=== PATIENT | female | born 1975 | race Caucasian/White ===

== ENCOUNTER 2019-11-13 11:24 | Outpatient (CLI) | payer BC, SELFPAY | END 2019-11-13 11:25 | disposition home or self-care (01) | PROVIDERS: PCP Family Medicine; Visit Provider Obstetrics & Gynecology | DX: N85.2 Hypertrophy of uterus (principal) | CPT/HCPCS: 36415; 86850; 86900; 86901 ==

== ENCOUNTER 2019-11-21 02:03 | Day surgery (SDC) | payer BC, SELFPAY ==
[2019-11-07 15:12] VITALS: BMI 22.8
[2019-11-21] VITALS (11 sets, daily range): BP systolic 115–148; BP diastolic 65–86; PULSE 53–88; RESP 9–21; TEMP 36.7–37.6; O2SAT 94–100
--- NOTE | 2019-11-21 08:50 | PM.IMHP ---
H&P: HPI History of Present Illness Chief complaint: Enlarged Uterus/ Firboids/ Heavy Bleeding/ Anemia Narrative: 44 y/o with menses that occur monthly, but which are very heavy, lasting 5 days or so. She has spotting in the midcycle. She had a D&C, and has also had an endometrial ablation, but has not had significant improvement. She has a fibroid uterus. She also has anemia related to her chronic blood loss. Her has had a vasectomy. She is here for definitive management of her problem with hysterectomy. Review of Systems Review of Systems: All systems reviewed & are unremarkable except as noted in HPI and below [facility] Surgical History Surgical History H/O dilation and curettage H/O prior ablation treatment Family History Family History Mother Patient's mother is , Onset Age: 63 Family history of multiple sclerosis Family history of muscular dystrophy Family history of hearing loss Father Patient's father is in good health Grandparent Carcinoma of colon Family history of malignant neoplasm of breast in first degree relative Social History Social History Smoking status: Never smoker Alcohol intake: current Comments Past OB: x 1, a girl weighing 6#11oz. 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 No history of STI or of abnormal pap. Meds Home Medications and Allergies Home Medications Medication Instructions Recorded Confirmed Type ferrous gluconate 324 mg (38 mg 324 mg PO DAILY 10/25/19 11/07/19 History iron) tablet fluticasone 250 mcg-salmeterol 50 1 inhalation INHALATION BID each 10/29/19 11/07/19 Rx mcg/dose blistr powdr for inhalation fluticasone propionate 50 2 spray NASAL DAILY PRN 10/29/19 11/07/19 History mcg/actuation nasal spray,suspension guaifenesin 600 mg tablet, 600 mg PO BID PRN 10/29/19 11/07/19 History extended release 12 hr triamcinolone acetonide 0.1 % 1 applic TOPICAL BID PRN 10/29/19 11/07/19 History topical cream amitriptyline 25 mg tablet 25 mg PO HS #30 tablet 11/16/19 Rx albuterol sulfate 90 mcg/actuation 2 puff INHALATION Q4-6H PRN #8.5 gm 11/19/19 Rx aerosol inhaler Allergies Allergy/AdvReac Type Severity Reaction Status Date / Time No Known Allergies Allergy Verified 11/07/19 15:14 Exam Const: Orientation/consciousness: patient oriented x3 Other: Well-developed, well-nourished female in no acute distress. Neck: Thyroid: thyroid normal Lymphatic: no lymphadenopathy noted (in neck, axilla or inguinal nodes) Resp: Effort & Inspection: normal respiratory effort Auscultation: clear to auscultation bilaterally Cardio: Rate: regular rate Rhythm: regular rhythm Heart sounds: S1 normal heart sound present and S2 normal heart sound present GI: Other: ABD: Soft, nontender, nondistended. No guarding or rebound tenderness. No hepatosplenomegaly. : General: Yes no CVA tenderness Other: External genitalia: normal female hair distribution, without lesion. Urethral meatus: no lesion, non prolapsed. Bladder: no mass, nontender Vagina: well-estrogenized, without lesion or discharge. No cystocele or rectocele. Cervix: no lesion or discharge. Uterus: enlarged, retroverted, nontender. 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 Adnexa: no mass or tenderness. Anus/perineum: no lesions, nontender Back/Spine/Pelvis: Back: no CVA tenderness Skin: General skin exam: normal color and no rashes or lesions noted Neuro: General: patient oriented x3 Extrem: Other: Extremities: nontender with no edema Psych: Mental Status: mental status grossly normal Affect: normal affect Assessment and Plan Assessment and plan (1) Menometrorrhagia: Code(s): N92.1 - Excessive and frequent menstruation with irregular cycle Status: Acute Ass
[2019-11-21] MEDS: LACTATED RINGERS 1,000 ML 30 ML IV CONT ×2 (12:58→15:30)
--- NOTE | 2019-11-21 13:51 | WPDANESEPPF ---
Anes - Initial Pre Proc Eval Procedure: Operation Date: 11/21/19 14:00 Proposed Procedures p Total Vaginal Hysterectomy, Bilateral Salpingectomy - Scott Duckworth MD Date/Time: 11/21/19 13:51 Surgeon: Scott Duckworth MD Pre Op Diagnosis: Enlarged Uterus/ Firboids/ Heavy Bleeding/ Anemia Patient Data Age: 44 Gender: F Height: 5 ft 6 in Weight: 61.6 kg Last Vital Signs Temp 37.6 C H 11/21/19 12:08 Pulse 84 11/21/19 12:08 Resp 16 11/21/19 12:08 BP 148/86 H 11/21/19 12:08 Pulse Ox 100 11/21/19 12:08 Allergies Allergy/AdvReac Type Severity Reaction Status Date / Time No Known Allergies Allergy Verified 11/21/19 12:48 Home Medications Medication Instructions Recorded Confirmed Type ferrous gluconate 324 mg (38 mg 324 mg PO DAILY 10/25/19 11/21/19 History iron) tablet fluticasone 250 mcg-salmeterol 50 1 inhalation INHALATION BID each 10/29/19 11/21/19 Rx mcg/dose blistr powdr for inhalation fluticasone propionate 50 2 spray NASAL DAILY PRN 10/29/19 11/21/19 History mcg/actuation nasal spray,suspension guaifenesin 600 mg tablet, 600 mg PO BID PRN 10/29/19 11/21/19 History extended release 12 hr triamcinolone acetonide 0.1 % 1 applic TOPICAL BID PRN 10/29/19 11/21/19 History topical cream amitriptyline 25 mg tablet 25 mg PO HS #30 tablet 11/16/19 11/21/19 Rx albuterol sulfate 90 mcg/actuation 2 puff INHALATION Q4-6H PRN #8.5 gm 11/19/19 11/21/19 Rx aerosol inhaler phenyleph-min oil-petrolatum 1 applic RI QAM AND QHS PRN 11/21/19 11/21/19 History [Preparation H] Patient hx anesthesia problems: none Family hx anesthesia problems: none PMFSH Surgical History Surgical History H/O dilation and curettage H/O prior ablation treatment Family History Family History Mother Patient's mother is , Onset Age: 63 Family history of multiple sclerosis Family history of muscular dystrophy Family history of hearing loss Father Patient's father is in good health Grandparent Carcinoma of colon Family history of malignant neoplasm of breast in first degree relative Social History Social History Smoking status: Never smoker Alcohol intake: current Anes - Eval Final PreProcedure Day of Procedure 11/21/19 13:51 Patient weight: normal Heart: regular rate and rhythm Lungs: clear to auscultation Airway: Mallampati scale class II Neurological: alert and oriented Last oral intake: >/= 8 hours ASA classification: II Emergent: no Anesthetic plan: proceed Anesthesia type and monitoring: general ETT and standard monitoring Informed Consent: The patient's anesthetic plan and its attendant risks and benefits were discussed with the patient/family/POA. Questions were solicited and answers provided to the satisfaction of the patient/family/POA.
[2019-11-21] MEDS: ceFAZolin 2 GM/D5W 50 ML 2 GM/50 ML BAG IVPB (14:14)
--- NOTE | 2019-11-21 15:31 | PM.PROC ---
Procedure Note - Detailed Date of procedure: 11/21/19 Pre-op diagnosis: Enlarged Uterus/ Firboids/ Heavy Bleeding/ Anemia Symptomatic fibroid uterus Menometrorrhagia Anemia Post-op diagnosis: same Procedure performed: TVH bilateral salpingectomies Description of procedure: The patient was taken to the operating room where she was prepared and draped in the usual sterile fashion in the dorsal lithotomy position. The bladder was drained with red rubber catheter. A weighted speculum was placed posteriorly. A Mindy retractor was used anteriorly. The cervix was grasped with a single-toothed tenaculum. Ten mL of sterile saline was infiltrated circumferentially around the cervix to aid in tissue plane dissection. The cervix was circumscribed using electrocautery. The bladder was reflected off the cervix and lower uterine segment. The peritoneal cavity was entered sharply posteriorly and a long weighted speculum was placed. The uterosacral and cardinal ligaments on both sides were then clamped, transected and suture ligated using 0 Vicryl. These were tagged for later identification. The LigaSure device was then used to clamp, ligate and transect the broad ligaments bilaterally. The uterus was cored in order to effect delivery to the perineum. The tubes were visualized and were able to be dissected free. Finally, the utero-ovarian ligament / round ligament complexes on both sides were able to be clamped, transected and suture ligated using 0 Vicryl. The specimen was passed off to be sent to pathology. The pedicles were inspected and found to be hemostatic. The vaginal cuff angles were then transfixed to the ipsilateral cardinal uterosacral ligaments for support. The vaginal cuff was reapproximated using 0 Vicryl in a running, locked fashion. Hemostasis was excellent. A Weller catheter was placed. Vaginal packing soaked in Premarin cream was placed. Sponge, lap, needle and instrument counts were correct. The patient was awakened and taken to the recovery room in stable condition. I was present and scrubbed for the entire procedure. Implants: None Anesthesia: GETA Surgeon: Scott Duckworth MD Estimated blood loss (mL): 100 Drains: Yes (weller) Packing: Yes (vaginal) Pathology: yes (Uterus, cervix, bilateral tubes) Complications: None Condition: stable Disposition: PACU Findings: Uterus is enlarged and fibroid. Normal-appearing cervix, bilateral ovaries and tubes.
[2019-11-21] MEDS: KETOROLAC 30 MG/ML VIAL (*BKC) IV PUSH ×2 (17:03→23:17)
[2019-11-21] MEDS: ENOXAPARIN 40 MG/0.4 ML SYRINGE SUB-Q (21:33)
[2019-11-21] MEDS: AMITRIPTYLINE HCL 25 MG TABLET PO (21:34)
--- NOTE | 2019-11-22 00:11 | PCRCNOTE ---
Patient refused to take the Advair 115 that was ordered for her (1999 treatment). She would only take her personal Advair 250, which is a DPI. She used it, then rinsed her mouth.
[2019-11-22 04:30] VITALS: BP 127/78; PULSE 83; PULSE 97; RESP 16; TEMP 37; O2SAT 98; O2SAT 99
[2019-11-22] MEDS: IBUPROFEN 600 MG TABLET PO ×2 (05:06→10:37)
[2019-11-22 05:37] LABS: Basophils Percent Auto 0.2 % (0.2-1.2); Hematocrit 33.4 % (37.0-47.0); Hemoglobin 11.1 g/dL (12.0-15.0); Immature Granulocyte Absolute 0.05 K/mm3 (0.00-0.031); Immature Granulocyte Percent A 0.5 % (0-0.5); Lymphocytes Absolute Auto 0.88 K/mm3 (0.9-3.2); Lymphocytes Percent Auto 8.1 % (18.3-44.2); Mean Corpuscular HGB Conc 33.2 g/dl (32-36); Mean Corpuscular Hemoglobin 30.1 pg (26-34); Mean Corpuscular Volume 90.5 fl (80-100); Mean Platelet Volume 11.7 fl (7.4-10.4); Monocytes Absolute Auto 0.9 K/mm3 (0.1-0.6); Monocytes Percent Auto 7.8 % (2.6-8.5); Neutrophils Absolute Auto 9.1 K/mm3 (1.3-6.7); Neutrophils Percent Auto 83.4 % (45.5-73.1); Platelet Count Result 188 k/mm3 (150-375); Red Blood Count 3.69 M/mm3 (4.2-5.4); Red Cell Distribution Width 12.3 % (11.5-14.5); White Blood Count 10.9 K/mm3 (4.5-10.0)
[2019-11-22 07:15] VITALS: BP 139/72; PULSE 79; RESP 18; TEMP 36.9; O2SAT 100
--- NOTE | 2019-11-22 08:39 | PM.GYNPNOP ---
HOME CONNECT LPN - A/P Assessment and plan (1) Fibroid uterus: Code(s): D25.9 - Leiomyoma of uterus, unspecified Status: Acute Assessment and Plan: A: S/p TVH with bilateral salpingectomies. Doing well. P: Home to f/u 4 weeks. (2) Menometrorrhagia: Code(s): N92.1 - Excessive and frequent menstruation with irregular cycle Status: Acute Postoperative Procedures: Procedures Operation Date: 11/21/19 14:00 Actual Procedures Side Surgeon p Total Vaginal Hysterectomy, Bilateral Salpingectomy Bilateral Scott Duckworth MD Time Spent With Patient Time with patient: less than 15 minutes HOME CONNE[facility] LPN- PN:Subj Post-Op Subjective Date/time seen: 11/22/19 08:39 Interval history: Pain OK. Nausea improved. Packing and weller out, has voided. Tolerating diet. Would love to go home. Exam Narrative: Exam Narrative: AVSS I/O OK ABD soft, nontender EXT nontender [facility] LPN - PN: Obj Data Vital Signs Vital Signs: Vital Signs - 24 hr 11/21/19 12:08 11/21/19 15:30 11/21/19 15:45 Temperature 37.6 C H 36.7 C Pulse Rate 84 88 64 Respiratory Rate 16 21 H 10 L Blood Pressure 148/86 H 119/70 123/69 Pulse Oximetry 100 100 100 11/21/19 16:00 11/21/19 16:15 11/21/19 16:30 Temperature Pulse Rate 53 L 80 73 Respiratory Rate 10 L 9 L 10 L Blood Pressure 126/65 124/73 125/70 Pulse Oximetry 100 100 99 11/21/19 17:00 11/21/19 17:15 11/21/19 17:30 Temperature 36.7 C Pulse Rate 73 84 74 Respiratory Rate 14 14 14 Blood Pressure 115/69 116/66 132/74 Pulse Oximetry 97 98 94 11/21/19 18:00 11/21/19 20:15 11/22/19 04:30 Temperature 36.8 C 37.0 C 37.0 C Pulse Rate 86 83 97 Respiratory Rate 14 16 16 Blood Pressure 136/78 126/67 127/78 Pulse Oximetry 94 98 99 Intake/Output Intake/Output: Intake & Output 11/19/19 11/20/19 11/21/19 11/22/19 23:59 23:59 23:59 23:59 Intake Total 750 2160 Output Total 390 1550 Balance 360 610 Meds/Results Medications: Active Medications Generic Name Dose Route Start Last Admin Trade Name Freq PRN Reason Stop Dose Admin Hydrocodone Bitart/Acetaminophen 1 tab 11/21/19 16:36 [place] 5-325 Mg PO Q3H PRN Pain Rated 5 or Less Hydrocodone Bitart/Acetaminophen 1 tab 11/21/19 16:36 [place] 10-325 Mg PO Q3H PRN Pain Rated 6 or Greater Albuterol 2 puff 11/21/19 16:36 Proventil Hfa INHALATION Q4-6H PRN Shortness Of Breath Or Wheezing Amitriptyline HCl 25 mg 11/21/19 21:00 11/21/19 21:34 Elavil PO 25 mg HS MARIA A Administration Fluticasone Propionate 2 spray 11/21/19 16:36 Flonase 0.05% Nasal [place] NASAL DAILY PRN Congestion Dextrose/Sodium Chloride 1,000 mls @ 125 mls/hr 11/21/19 16:36 Dextrose 5% Sodium Chloride 0.45% IV CONT .Q8H MARIA A Ibuprofen 600 mg 11/21/19 16:36 11/22/19 05:06 Motrin PO 600 mg Q6H PRN Administration Cramping Ketorolac Tromethamine 30 mg 11/21/19 16:36 11/21/19 23:17 Toradol Inj IV PUSH 11/26/19 16:37 30 mg Q6H PRN Administration Pain Rated 4-6 Morphine Sulfate 4 mg 11/21/19 16:36 Morphine Sulfate Inj IV PUSH Q4H PRN Severe breakthrough pain Naloxone HCl 0.1 mg 11/21/19 16:36 Narcan IV PUSH Q2M PRN Respiratory rate less than 10 Ondansetron HCl 4 mg 11/21/19 16:36 Zofran Inj IV PUSH Q6H PRN Nausea And Vomiting Phenyleph/Shark Oil/Min Oil/Petrol 1 applic 11/21/19 16:36 Preparation H Cream RECTAL BID PRN Hemorrhoids Fluticasone/Salmeterol 2 puff 11/21/19 20:00 11/21/19 21:45 Advair Hfa 115-21 Mcg Inhaler (*Sp) INHALATION Not Given Q12HRT MARIA A Simethicone 80 mg 11/21/19 16:36 Mylicon PO Q2H PRN Gas Triamcinolone Acetonide 1 applic 11/21/19 16:36 Kenalog 0.1% Cream TOPICAL BID PRN Itching Labs CBC & Chem 7: 11/22/19 04:32 Labs: Laboratory Results - last 24 hr 11/22/19 04:32 WBC 10.9 H
--- NOTE | 2019-11-22 08:41 | PM.DS ---
DS: Diagnosis Admitting Diagnosis Admitting Diagnosis: Symptomatic fibroid uterus Menometrorrhagia Anemia DS: Data Data Completed and Pending Pending studies at discharge: Pending at discharge 11/21/19 15:06 Surgical [PTH] Routine Labs on day of discharge: Labs from last 24 hours 11/22/19 04:32 WBC 10.9 H RBC 3.69 L Hgb 11.1 L Hct 33.4 L MCV 90.5 MCH 30.1 MCHC 33.2 RDW 12.3 Plt Count 188 MPV 11.7 H Immature Gran % (Auto) 0.5 Neut % (Auto) 83.4 H Lymph % (Auto) 8.1 L [place] % (Auto) 7.8 Eos % (Auto) 0.0 Baso % (Auto) 0.2 Lymph # (Auto) 0.88 L [place] # (Auto) 0.9 H Eos # (Auto) 0.0 Baso # (Auto) 0.0 Abs Immat Gran (auto) 0.05 H Absolute Neuts (auto) 9.1 H Absolute Nucleated RBC 0.0 Nucleated RBC % 0.0 Discharge Plan Discharge Patient Disposition: Home, Self-Care Discharge Instructions: Call or return if temperature above 100.4? F, increased abdominal pain, increased vaginal bleeding or any new problems. Stand Alone Forms: General Discharge Instructions Follow-up/Referrals: Scott Duckworth MD [Physician] - (4 weeks) Discharge Medications: New hydrocodone-acetaminophen [[place]] 5-325 mg tablet 1 - 2 tablet PO Q6H PRN (Reason: pain) Qty: 30 RF: 0 No Action ferrous gluconate 324 mg (38 mg iron) tablet 324 mg PO DAILY RF: 0 fluticasone propionate 50 mcg/actuation spray,suspension 2 spray NASAL DAILY PRN (Reason: Congestion) RF: 0 guaifenesin [Mucinex] 600 mg tablet extended release 12hr 600 mg PO BID PRN (Reason: Congestion) RF: 0 triamcinolone acetonide 0.1 % cream 1 applic TOPICAL BID PRN (Reason: Itching) RF: 0 fluticasone propion-salmeterol [Advair Diskus] 250-50 mcg/dose blister with device 1 inhalation INHALATION BID RF: 0 Preparation H 0.25-14-74.9 % Ointment 1 applic LA QAM AND QHS PRN (Reason: Hemorrhoids) RF: 0 amitriptyline 25 mg tablet 25 mg PO HS Qty: 30 RF: 5 albuterol sulfate [Ventolin HFA] 90 mcg/actuation HFA aerosol inhaler 2 puff INHALATION Q4-6H PRN (Reason: Shortness Of Breath Or Wheezing) Qty: 8.5 RF: 0 Primary Care Provider: Keke Faith Attending physician on admission: Scott Duckworth
--- NOTE | 2019-11-22 10:45 | PC.NURSE ---
1020 All discharge instructions reviewed with pt and her . Pt voiced understanding.
== END 2019-11-22 10:40 | disposition home or self-care (01) ==
LOC: ANHSURGERY 12:42 → ANHOB2 16:44
PROVIDERS: PCP Family Medicine; Visit Provider Obstetrics & Gynecology
PROC: (CPT 58260; principal; 2019-11-21 14:00)
DX: D25.1 Intramural leiomyoma of uterus (principal); D25.2 Subserosal leiomyoma of uterus; N73.6 Female pelvic peritoneal adhesions (postinfective); N92.1 Excessive and frequent menstruation with irregular cycle; D64.9 Anemia, unspecified
CPT/HCPCS: 58262; 36415; 85025; 88307; 99199; A9270; J0131; J0690; J1100; J1170; J1650; J1885; J2250; J2405; J2704; J2710; J3010; J7030; J7120

== ENCOUNTER → 2022-08-23 16:04 | Outpatient (CLI) | payer BC, SELFPAY ==
--- NOTE | ~2022-08-23 | XR_ITS ---
XR foot RT min 3V DATE: 08/23/2022 16:24 INDICATION: Right foot pain TECHNIQUE: 4 views COMPARISON: None No other fracture or dislocation, periosteal reaction or bone destruction. FINDINGS: There is a recent nondisplaced transverse intra-articular fracture of the base of the fifth metatarsal bone. IMPRESSION: Transverse nondisplaced intra-articular fracture of base of fifth metatarsal bone Reviewed, dictated and finalized at location [facility]. [facility]PER[facility] IMPRESSION: Transverse nondisplaced intra-articular fracture of base of fifth m etatarsal bone
== END ==
PROVIDERS: PCP Physician Assistant; Visit Provider Physician Assistant
DX: S92.354A Nondisplaced fracture of fifth metatarsal bone, right foot, initial encounter for closed fracture (principal); X58.XXXA Exposure to other specified factors, initial encounter
CPT/HCPCS: 73630

== ENCOUNTER 2023-06-07 01:41 | Day surgery (SDC) | payer BC, SELFPAY ==
[2023-05-26 11:16] VITALS: BMI 22.4
--- NOTE | 2023-06-06 10:06 | WPDANESEPPF ---
Anes - Initial Pre Proc Eval Procedure: Operation Date: 06/07/23 11:30 Proposed Procedures p Screening Colonoscopy - Fredy Medina MD Date/Time: 06/06/23 10:06 Surgeon: Fredy Medina MD Pre Op Diagnosis: neoplasm screening Patient Data Age: 48 Gender: F Height: 1.7 m Weight: 65 kg Allergies Allergy/AdvReac Type Severity Reaction Status Date / Time No Known Allergies Allergy Verified 06/07/23 10:30 Home Medications Medication Instructions Recorded Confirmed Type triamcinolone acetonide 0.1 % 1 applic topical BID PRN Itching 10/29/19 05/26/23 History topical cream albuterol sulfate 90 mcg/actuation 2 puff inhalation Q4-6H PRN 04/04/23 05/26/23 Rx aerosol inhaler (Ventolin HFA) Shortness Of Breath Or Wheezing #8.5 grams guaifenesin 600 mg tablet, 600 mg PO Q12H PRN ASTHMA 05/26/23 05/26/23 History extended release 12 hr (Mucinex) loratadine 10 mg tablet (Claritin) 10 mg PO DAILY PRN ASTHMA 05/26/23 05/26/23 History amitriptyline 25 mg tablet 25 mg PO QHS #90 tabs 06/01/23 Rx fluticasone 250 mcg-salmeterol 50 1 inh inhalation BID #60 ea 06/01/23 Rx mcg/dose blistr powdr for inhalation (Advair Diskus) Patient hx anesthesia problems: none Family hx anesthesia problems: none Results Review: All pre-operative results and documents have been reviewed as part of the pre-operative evaluation. [facility] Past Medical History Medical History (Updated 06/06/23 @ 10:06 by Jovon Carpenter DO) Asthma Fibroid uterus Fracture of fifth metatarsal bone of right foot Surgical History Surgical History H/O dilation and curettage [address] Scott Duckworth H/O prior ablation treatment [address] Scott Duckworth H/O: hysterectomy [address] Scott Duckworth [place] teeth removed [address] Casie Simental Family History Family History Mother Patient's mother is , Onset Age: 63 Family history of multiple sclerosis Family history of muscular dystrophy Family history of hearing loss Father Patient's father is in good health Grandparent Carcinoma of colon Family history of malignant neoplasm of breast in first degree relative Other Kidney disorder Other Asthma Social History Social History Smoking status: Never smoker Alcohol intake: current Alcohol use details: 1-2 drinks at most per month Substance use: never Substance use type: does not use Lack of Transportation: No Lack of Food: Never True Current Housing: I Have Housing Concerned About Future Housing: No Difficulty Paying Gas/Electric Bills: No Difficulty Paying for Meds: No Currently Unemployed: No Education: Bachelor's Degree Difficulty w/ Childcare or Family Care: No Living arrangements: with family Gender identity (if verbalized by the patient): Female Spiritual care concerns: No Anes - Eval Final PreProcedure Day of Procedure 06/06/23 10:06 Patient weight: normal Heart: regular rate and rhythm Lungs: clear to auscultation and normal air movement Airway: Mallampati scale class II Neurological: alert and oriented Last oral intake: >/= 8 hours ASA classification: II Emergent: no Anesthetic plan: proceed Anesthesia type and monitoring: general GIVS and standard monitoring Results Review: All pre-operative results and documents have been reviewed as part of the pre-operative evaluation. Informed Consent: The patient's anesthetic plan and its attendant risks and benefits were discussed with the patient/family/POA. Questions were solicited and answers provided to the satisfaction of the patient/family/POA.
[2023-06-07 10:32] VITALS: BP 116/80; PULSE 66; RESP 18; TEMP 36.4; O2SAT 100
[2023-06-07] MEDS: LACTATED RINGERS 1,000 ML 150 ML IV CONT (10:39)
--- NOTE | 2023-06-07 11:50 | PM.HPGS ---
History of Present Illness History of Present Illness Consent: Risks, benefits, and alternatives have been discussed and questions answered. Patient agrees to proceed with procedure. Chief complaint: neoplasm screening Narrative: Shu Kline is a 48 year old female here for first screening colonoscopy Review of Systems Constitutional: Constitutional: Denies headache(s) and Denies weakness Eyes: Eyes: Denies blurry vision ENT: Reports Normal hearing present, Denies headache(s) and Denies neck pain Cardiovascular: Cardiovascular: Denies chest pain and Denies dyspnea Respiratory: Respiratory: Denies dyspnea Gastrointestinal: Gastrointestinal: Reports no additional gastrointestinal complaints Genitourinary: Genitourinary: Denies dysuria Musculoskeletal: Musculoskeletal: Denies neck pain Integumentary/Breasts: Skin/Breast: Denies dry skin Neurologic: Reports Normal hearing present, Denies headache(s) and Denies weakness Psychiatric: Psychiatric: Denies anxiety Endocrine: Endocrine: Denies change in body appearance Hematologic/Lymphatic: Hematologic/Lymphatic: Denies easy bleeding Allergic/Immunologic: Allergic/Immunologic: Denies urticaria [facility] Past Medical History Medical History (Updated 06/06/23 @ 10:06 by Jovon Carpenter DO) Asthma Fibroid uterus Fracture of fifth metatarsal bone of right foot Surgical History Surgical History H/O dilation and curettage [address] Scott Duckworth H/O prior ablation treatment [address] Scott Duckworth H/O: hysterectomy [address] Scott Duckworth [place] teeth removed [address] Jason Loveless Family History Family History Mother Patient's mother is , Onset Age: 63 Family history of multiple sclerosis Family history of muscular dystrophy Family history of hearing loss Father Patient's father is in good health Grandparent Carcinoma of colon Family history of malignant neoplasm of breast in first degree relative Other Kidney disorder Other Asthma Social History Social History Smoking status: Never smoker Alcohol intake: current Alcohol use details: 1-2 drinks at most per month Substance use: never Substance use type: does not use Lack of Transportation: No Lack of Food: Never True Current Housing: I Have Housing Concerned About Future Housing: No Difficulty Paying Gas/Electric Bills: No Difficulty Paying for Meds: No Currently Unemployed: No Education: Bachelor's Degree Difficulty w/ Childcare or Family Care: No Living arrangements: with family Gender identity (if verbalized by the patient): Female Spiritual care concerns: No Meds Home Medications and Allergies Home Medications Medication Instructions Recorded Confirmed Type triamcinolone acetonide 0.1 % 1 applic topical BID PRN Itching 10/29/19 05/26/23 History topical cream albuterol sulfate 90 mcg/actuation 2 puff inhalation Q4-6H PRN 04/04/23 05/26/23 Rx aerosol inhaler (Ventolin HFA) Shortness Of Breath Or Wheezing #8.5 grams guaifenesin 600 mg tablet, 600 mg PO Q12H PRN ASTHMA 05/26/23 05/26/23 History extended release 12 hr (Mucinex) loratadine 10 mg tablet (Claritin) 10 mg PO DAILY PRN ASTHMA 05/26/23 05/26/23 History amitriptyline 25 mg tablet 25 mg PO QHS #90 tabs 06/01/23 Rx fluticasone 250 mcg-salmeterol 50 1 inh inhalation BID #60 ea 06/01/23 Rx mcg/dose blistr powdr for inhalation (Advair Diskus) Allergies Allergy/AdvReac Type Severity Reaction Status Date / Time No Known Allergies Allergy Verified 06/07/23 10:30 Vital Signs Vital Signs - 24 hr 06/07/23 10:32 Temperature 97.5 F L Pulse Rate 66 Respiratory Rate 18 Blood Pressure 116/80 Pulse Oximetry 100 Oxygen Delivery Room Air Exam Const: General: c
[2023-06-07 12:09] VITALS: BP 116/70; PULSE 83; RESP 16; O2SAT 100
[2023-06-07 12:19] VITALS: BP 127/75; PULSE 73; RESP 15; O2SAT 97
[2023-06-07 12:29] VITALS: BP 144/87; PULSE 64; RESP 18; O2SAT 98
== END 2023-06-07 12:34 | disposition home or self-care (01) ==
PROVIDERS: PCP Family Medicine; Visit Provider Internal Medicine Gastroenterology
PROC: 0DJD8ZZ Inspection of Lower Intestinal Tract, Via Natural or Artificial Opening Endoscopic (ICD-10-PCS; CPT 45378; principal; 2023-06-07 11:45)
DX: Z12.11 Encounter for screening for malignant neoplasm of colon (principal); D12.4 Benign neoplasm of descending colon; J45.909 Unspecified asthma, uncomplicated; Z79.51 Long term (current) use of inhaled steroids
CPT/HCPCS: 45385; 88305; J2704; J7120

== ENCOUNTER 2024-10-25 09:55 | Emergency (ER) | payer BC, SELFPAY ==
--- NOTE | ~2024-10-25 | XR_ITS ---
EXAMINATION: XR chest 2V DATE: 10/25/2024 11:34 INDICATION: Shortness of breath. Cough. TECHNIQUE: Frontal and lateral views of the chest were obtained. COMPARISON: None. FINDINGS: There are airspace opacities in left mid and lower lung zones. No pleural effusion or pneum othorax. The heart size is normal. IMPRESSION: 1. Airspace opacities in left mid and lower lung zones, consistent with pneumonia. Reviewed, dictated and finalized at location A. AL CONSUMER SECTOR VICE PRESIDENT IMPRESSION: 1. Airspace opacities in left mid and lower lung zones, consistent with pneumon ia.
[2024-10-25 10:50] VITALS: BP 102/66; PULSE 107; RESP 16; TEMP 37; O2SAT 98
--- NOTE | 2024-10-25 11:09 | ED_ITS ---
HPI - URI/Sore Throat General Chief Complaint: Upper Respiratory Infection Stated Complaint: SOB/COUGH/CONGESTION/ASTHMA Time Seen by Provider: 10/25/24 11:09 Source: patient, RN notes reviewed and old records reviewed Mode of arrival: ambulatory Limitations: no limitations History of Present Illness HPI Narrative: 49-year-old female presents to the [facility] with 1 day history of cough, shortness of breath and fever as high as 101. Patient reports a history of asthma. Has been using her inhaler. Onset (ago): day(s) (1) Treatments prior to arrival: other (Inhaler) Related Data Home Medications ?Medication ?Instructions ?Recorded ?Confirmed ?Last Taken ?Type triamcinolone acetonide 0.1 % 1 applic topical BID PRN Itching 10/29/19 09/18/24 11/20/19 History topical cream guaifenesin 600 mg tablet, 600 mg PO Q12H PRN ASTHMA 05/26/23 09/18/24 Unknown History extended release 12 hr (Mucinex) loratadine 10 mg tablet (Claritin) 10 mg PO DAILY PRN ASTHMA 05/26/23 09/18/24 Unknown History azelastine 205.5 mcg (0.15 %) 1 spray intranasal QHS 12/21/23 09/18/24 Unknown History nasal spray (Astepro Allergy) Allergies Allergy/AdvReac Type Severity Reaction Status Date / Time No Known Allergies Allergy Verified 10/25/24 10:47 Review of Systems Review of Systems: All systems reviewed & are unremarkable except as noted in HPI and below Constitutional: Constitutional: Reports as per HPI, Reports body ache(s), Reports fatigue and Reports fever(s) ENT: Reports system reviewed and no additional complaints, except as documented Cardiovascular: Cardiovascular: Reports no additional cardiovascular complaints, Denies chest pain and Denies dyspnea Respiratory: Respiratory: Reports as per HPI, Denies chest congestion, Reports cough and Reports dyspnea Musculoskeletal: Musculoskeletal: Reports no additional musculoskeletal complaints Integumentary/Breasts: Skin/Breast: Reports system reviewed and no additional complaints, except as docu PMFSH Past Medical History Medical History Menorrhagia with regular cycle Iron deficiency anemia due to chronic blood loss Allergic rhinitis, cause unspecified Fracture of fifth metatarsal bone of right foot Fibroid uterus Asthma Surgical History Surgical History [place] teeth removed [address] Casie Simental H/O: hysterectomy [address] Scott Duckworth H/O dilation and curettage [address] Scott Duckworth H/O prior ablation treatment [address] Scott Duckworth Family History Family History Mother Patient's mother is , Onset Age: 63 Family history of multiple sclerosis Family history of muscular dystrophy Family history of hearing loss Father Patient's father is in good health Grandparent Carcinoma of colon Family history of malignant neoplasm of breast in first degree relative Other Kidney disorder Other Asthma Social History Social History Smoking status: Never smoker Alcohol intake: current Alcohol use details: 1-2 drinks at most per month Substance use: never Substance use type: does not use Lack of Transportation: No Lack of Food: Never True Current Housing: I Have Housing Concerned About Future Housing: No Difficulty Paying Gas/Electric Bills: No Difficulty Paying for Meds: No Currently Unemployed: No Education: Bachelor's Degree Difficulty w/ Childcare or Family Care: No Living arrangements: with family Gender identity (if verbalized by the patient): Female Spiritual care concerns: No Comments At the time of my signature, I reviewed and agree with the nursing past medical, surgical, social, and family history. There is no relevant family history pertinent to the patient complaint. Exam Const: General: cooperative, healthy appearing, no acute distress, well developed, alert, uncomfortable and well nourished Nutritional Appearance: well nourished Orientation/consciousness: patient oriented x3 Limitations: no limitations HENMT: Head: normal to inspection Ears: hearing grossly normal bilaterally, external ears normal, TM's normal bilaterally, EAC's normal, mastoids normal and no periauricular adenopathy Mouth: Yes Normal oral and palatal mucosa present, Yes lip normal, Yes tongue normal and Yes moist mucous membranes Throat: posterior oropharynx normal, uvula midline and no uvular edema Eyes: General: appearance normal, both eyes and all related structures Alignment and Position: alignment normal Neck: Neck: normal visual inspection, full ROM, no lymphadenopathy and no meningeal signs Chest: Chest palpation & inspection: normal inspection of the chest Resp: Effort & Inspection: normal respiratory effort and able to speak in complete sentences Auscultation: no crackles, no rales, no rhonchi and wheezes expiratory wheezes and left upper Cardio: Rate: regular rate Skin: General skin exam: normal color and no rashes or lesions noted Neuro: General: patient oriented x3, gait normal, moves all extremities and no meningeal signs Cognition (Neuro): normal cognition Speech: normal speech Gait exam (Neuro): Normal gait present Extrem: General: normal to inspection, full ROM, capillary refill normal and normal gait Psych: Appearance: grossly normal and well kempt Mental Status: mental status grossly normal Speech and movement: Normal speech and movement present and Clear speech present Affect: normal affect Attitude: cooperative Course Course Level of Care: Express Care Visit Vital Signs Vital signs: Vital Signs Temperature 98.6 F 10/25/24 10:50 Pulse Rate 107 H 10/25/24 10:50 Respiratory Rate 16 10/25/24 10:50 Blood Pressure 102/66 10/25/24 10:50 Pulse Oximetry 98 10/25/24 10:50 Temperature 98.6 F 10/25/24 10:50 Pulse Rate 107 H 10/25/24 10:50 Respiratory Rate 16 10/25/24 10:50 Blood Pressure 102/66 10/25/24 10:50 Pulse Oximetry 98 10/25/24 10:50 Reviewed MDM - URI/Sore Throat MDM Narrative Medical decision making narrative: Patient sitting in exam room. Nontoxic, vitals stable. Patient with 1 day history of URI symptoms. Patient reports cough shortness of breath. Had used her inhaler. Patient is flu positive Patient's chest x-ray shows pneumonia left side. discussed [id number] products as well as prescribed azithromycin and Augmentin. Discussed in detail signs and symptoms to proceed to emergency room which patient and significant other verbalized understanding Discharge instructions reviewed with patient, as well as provided in writing per nursing staff. The instructions also include specific and strict return/GO TO THE ER as well as f/u information. All questions have been answered, and the patient deny any further questions with discharge and discharge plan. Some parts of this dictation were generated by voice recognition software and may contain typographical and/or grammatical inaccuracies. Differential Diagnosis Differential diagnosis: Likely upper respiratory infection, sinusitis, viral infection, bronchitis and influenza Lab Data Labs: Lab Results 10/25/24 Range/Units 11:20 POC Influenza A Ag Negative (Negative) POC Influenza B Ag Negative (Negative) POC SARS CoV-2 Ag Negative (Negative) Patient was influenza A positive Imaging Data Radiologist's impression: EXAMINATION: XR chest 2V DATE: 10/25/2024 11:34 INDICATION: Shortness of breath. Cough. TECHNIQUE: Frontal and lateral views of the chest were obtained. COMPARISON: None. FINDINGS: There are airspace opacities in left mid and lower lung zones. No pleural effusion or pneumothorax. The heart size is normal. IMPRESSION: 1. Airspace opacities in left mid and lower lung zones, consistent with pneumonia. Critical Care Time Critical Care Time Critical Care Time: No Discharge Plan Discharge Clinical Impression: Influenza A Pneumonia Qualifiers: Pneumonia type: due to unspecified organism Laterality: left Lung location: unspecified part of lung Qualified Code(s): J18.9 - Pneumonia, unspecified organism Patient Disposition: Home, Self-Care Condition: Stable Instructions: Antibiotic Form, Influenza (ED), Pneumonia (ED) Additional Instructions: Treat your in symptoms for influenza A. Take Motrin and Tylenol as needed for aches pains and fever. You can alternate every 4 hours per package instructions Antibiotics have been prescribed for pneumonia. It is extremely important that you do take 10 deep breaths every hour while awake Use your inhaler every 4-5 hours while awake Follow-up with your primary care provider in 1 week For new or worsening symptoms go directly to the emergency room Patient Language: Ecuadorean Prescriptions: New (DME) Aerochamber MV Spacer See Rx Instructions .Route Qty: 1 0RF Rx Instructions: As directed azithromycin 250 mg tablet See Rx Instructions .ROUTE .COMPLEX Qty: 6 0RF Rx Instructions: take 500 mg today (day 1), then 250 mg for 4 days (days 2-5) amoxicillin-pot clavulanate 875-125 mg tablet 1 tablet PO Q12H Qty: 14 0RF No Action azelastine [Astepro Allergy] 205.5 mcg (0.15 %) spray,non-aerosol 1 spray intranasal QHS Rx Instructions: administer into each nostril amitriptyline 25 mg tablet 25 mg PO QHS Qty: 90 3RF albuterol sulfate [Ventolin HFA] 90 mcg/actuation HFA aerosol inhaler 2 puff INHALATION Q4-6H PRN (Reason: Shortness Of Breath Or Wheezing) Qty: 8.5 5RF triamcinolone acetonide 0.1 % cream 1 applic TOPICAL BID PRN (Reason: Itching) loratadine [Claritin] 10 mg Tablet 10 mg PO DAILY PRN (Reason: ASTHMA) guaifenesin [Mucinex] 600 mg Tablet Extended Release 12hr 600 mg PO Q12H PRN (Reason: ASTHMA) mupirocin 2 % ointment 1 applic topical BID Qty: 22 1RF fluticasone propion-salmeterol 250-50 mcg/dose blister with device See Rx Instructions .ROUTE .COMPLEX Qty: 180 0RF Dose Instruction: INHALE ONE PUFF TWICE A DAY Rx Instructions: INHALE ONE PUFF TWICE A DAY Follow-up/Referrals: Tommy Johnson MD [Primary Care Provider] - 2 Weeks (express care follow up ) Stand Alone Forms: Work/School Release IP Time of Disposition: 11:45
[2024-10-25 11:22] LABS: EDCOVIDSCREEN Negative (Negative); EDINFLUBSCREEN Negative (Negative)
[2024-10-26 07:41] LABS: EDINFLUASCREEN Positive (Negative)
== END 2024-10-25 12:01 | disposition home or self-care (01) ==
PROVIDERS: Emergency Provider Nurse Practitioner; PCP Family Medicine
DX: J10.1 Influenza due to other identified influenza virus with other respiratory manifestations (principal); J18.9 Pneumonia, unspecified organism; Z20.822 Contact with and (suspected) exposure to COVID-19; J45.909 Unspecified asthma, uncomplicated
CPT/HCPCS: 71046; 87426; 87804; 99213; G0463

== ENCOUNTER 2024-10-25 18:54 | Emergency (ER) | payer BC, SELFPAY ==
--- OUTSIDE RECORDS SUMMARY | 2024-10-25 18:56 | XMS_ITS | Patient Health Summary ---
Author Organization [facility] Address [address] [place] [address] Care Team Providers Care Cocktail Lounge Manager Name Role Phone Mendy Alvarez MD Unavailable [phone] Tommy Johnson MD Primary Care Provider [phone] Note from [facility],non-owned Affiliates and Associated Physician Practices is amultiple site organization consisting of ambulatory clinics and hospital sitesin [place], [place], [place] and [place]. This disclosure is being madepursuant to the Care Everywhere program and may not contain all information available regarding this patient. Last updated 18.[facility] Allergies No known active allergies Medications * Be aware that medications may not be up to date on this document. Alwaysverify current medications with the patient. * ADVAIR DISKUS 250-50 MCG/DOSE inhaler(Started 05/12/2021) * amitriptyline (ELAVIL) 25 MG tablet(Started 03/11/2021) * albuterol (ACCUNEB) 0.63 MG/3ML nebulizer solution Inhale by mouth 4 times daily as needed for Shortness of Breath or Wheezing * TRIAMCINOLONE ACETONIDE NA Insert 0.1 % into the vagina as needed * guaiFENesin ER 12hr (Mucinex) 600 MG tablet Take 1 (one) tablet by mouth every 12 hours * loratadine (Claritin) 10 MG tablet Take 1 (one) tablet by mouth once daily * azelastine (Astepro) 205.5 MCG/SPRAY nasal spray [place] 2 (two) sprays into each nostril 2 times daily Active Problems No known active problems Social History Tobacco Use Types Packs/Day Years Used Date Smoking Tobacco: Never Smokeless Tobacco: Never Tobacco Cessation:Counseling Given: Not Answered Alcohol Use Standard Drinks/Week Comments Yes 0 (1 standard drink = 0.6 oz pur e alcohol) rarely Sex and Gender Information Value Date Recorded Sex Assigned at Not on file Gender Identity Not on file Sexual Orientation Not on file Last Filed Vital Signs Vital Sign Reading Time Taken Comments Blood Pressure 134/74 05/24/2023 11:04 AM CDT Pulse 106 05/24/2023 11:04 AM CDT Temperature 36.3 ??C (97.3 ??F) 05/29/2024 11:34 AM C DT Respiratory Rate - - Oxygen Saturation - - Inhaled Oxygen Concentration - - Weight 64.2 kg (141 lb 9.6 oz) 05/29/2024 11:34 AM CDT Height 167.6 cm (5' 6 ) 05/29/2024 11:34 AM CDT Body Mass Index 22.85 05/29/2024 11:34 AM CDT Procedures * MAMMO BILAT SCREENING W PRAVIN(Performed 05/29/2024) Performed for Encounter for screening mammogram for malignant neoplasm of breast * US BREAST BILATERAL COMPLETE(Performed 10/31/2023) Performed for Breast cancer screening, high risk patient * MAMMO BILAT SCREENING W PRAVIN(Performed 05/24/2023) Performed for Breast cancer screening, high risk patient, Fibrocystic breast disease (FCBD), unspecified laterality * US BREAST BILATERAL COMPLETE(Performed 11/29/2022) Performed for Breast cancer screening, high risk patient, Fibrocystic breast disease (FCBD), unspecified laterality * MAMMO BILAT SCREENING W PRAVIN(Performed 05/21/2022) Performed for Encounter for screening mammogram for malignant neoplasm of breast * US BREAST BILATERAL COMPLETE(Performed 11/06/2021) Performed for Fibrocystic breast disease (FCBD), unspecified laterality * MAMMO BILAT SCREENING W PRAVIN(Performed 05/15/2021) Performed for Fibrocystic breast disease (FCBD), unspecified laterality Results * Mammo Bilat Screening W Pravin (05/29/2024 11:00 AM CDT) Only the most recent of4 resultswithin the time period is included. Anatomical Region Laterality Modality Breast Bilateral Mammography 05/29/2024 1:30 PM CDT Impressions 05/29/2024 1:34 PM CDT : No mammographic evidence of malignancy in either breast. ASSESSMENT: BIRADS Category 2: Benign finding(s). RECOMMENDATION: Supplemental screening with breast MRI or whole breast ultrasound is recommended Bilateral screening mammogram in one year. Thank you for allowing us to participate in the care of your patient. [facility] utilizes [facility] SPINE as a reminder system to notify patients of their next recommended mammogram. > Interpreting Provider: Leticia Gama MD on 05/29/2024 1:34 PM Narrative 05/29/2024 1:34 PM CDT EXAMINATION: Digital screening mammogram. Low-dose full-field digital breast tomosynthesis examination was performed with synthetic 2D images. Computer assisted detection was utilized. DATE: 05/29/2024 11:00 AM PRIOR: ??2022 and prior mammograms dating back to 2020. BREAST PARENCHYMAL DENSITY: The breasts are extremely dense, which lowers the sensitivity of mammography. FINDINGS: Bilateral masses are redemonstrated. Dominant mass in the right breast may measure up to 8 cm. No suspicious masses, areas of architectural distortion or microcalcifications are evident on synthetic 2D mammogram or tomosynthesis images. Mendy Alvarez MD MAMMO ORDERABLES * US BREAST BILATERAL COMPLETE( whole breast including axilla and retroareaolar region) (10/31/2023 1:45 PM FIELD SERVICE TECHNICIAN POULTRY) Only the most recent of3 resultswithin the time period is included. Anatomical Region Laterality Modality Breast Bilateral Ultrasound 10/31/2023 1:46 PM FIELD SERVICE TECHNICIAN POULTRY Narrative 10/31/2023 1:49 PM FIELD SERVICE TECHNICIAN POULTRY EXAMINATION: US BREAST BILATERAL COMPLETE DATE: ??10/31/2023 HISTORY: Screening. Dense breast parenchyma. ?? RISK ASSESSMENT CALCULATION: 19.05% (from May 24, 2023 screening mammogram evaluation) COMPARISON: Prior breast imaging studies back to 04/21/2020. Correlated with most recent mammogram dated 05/24/2023. TECHNIQUE: Complete bilateral high resolution breast ultrasound performed, including all 4 quadrants, the subareolar regions, and the axillae. TISSUE COMPOSITION: ??Heterogeneous background echotexture. FINDINGS: RIGHT BREAST: There is no suspicious finding. There are innumerable cysts in the right breast, the largest of which measures at least 5.0 cm and is difficult to include in a single codlc-es-kyhm. No morphologically abnormal axillary lymph nodes. LEFT BREAST: There is no suspicious finding. There are innumerable cysts in the left breast.. No morphologically abnormal axillary lymph nodes. RECOMMENDATION: 1. Annual screening mammography is recommended in April,. 2. Continued supplemental screening is recommended. If the patient remains at an intermediate calculated lifetime risk for developing breast cancer, then supplemental screening with bilateral complete/whole breast ultrasound will be appropriate. If the patient's risk assessment increases to greater than 20% at the time of her future mammogram, then supplemental screening with breast MRI will be appropriate. 3. The exam results and management recommendations were discussed with the patient by Dr. Avalos at the time of study completion. OVERALL FINAL ASSESSMENT: ??BI-RADS Category 2: Benign. > Interpreting Provider: Ana Avalos MD on 10/31/2023 1:49 PM Mendy Alvarez MD ORDERABLES Care Teams Cocktail Lounge Manager Relationship Specialty Start Date End Date Tommy Johnson MD [facility] [place] [address] PCP - General Family Medicine 05/24/23 Mendy Alvarez MD [id number] [place] [address] [place] [id number] Surgical Oncologist General Surgery 11/07/20
--- OUTSIDE RECORDS SUMMARY | 2024-10-25 18:56 | XMS_ITS | Continuity of Care Document ---
Author Organization [facility] Address [address] [place] [address] [place] [address] Phone Care Team Providers Care Senior Technical Business Analyst Name Role Phone Scott Bangura Unavailable Unavailable Advance Directives Directive Yes / No Effective Date File Name No Information Encounters Encounter Description Practice Location Reason(s) For Visit Diagnoses Date Provider Providers Copied on Encounter [facility], [id number] [place] [address] [address], [place], [place], [id number], [place] tel:[phone] [facility] No Information Willem Chavez. [address], [place], [facility], . tel:[phone] Referring Provider: Scott Norwood, [address], [place], [facility]. tel:[phone] Family History Family Member Type Diagnosis Age At Onset No Information Payers Payer name Insurance type Covered alliance party ID Authoriza tiluis miguel(s) [facility] Commercial CI [id number] Social History Type Description Quantity Date Captured Comments Sex Female Smoking Status No Information Chief Complaint And Reason For Visit No Information Reason For Referral Reason For Referral No Information History Of Present Illness Encounter Date Complaint History Of Prese nt Illness No Information Functional Status Date Functional Assessmen t No Information Instructions Date Instruction Additional Infor mation No Information Assessments Type Assessment Date No Information Patient Care Teams Name Effective Dates (start - stop) Status Members No Information
--- OUTSIDE RECORDS SUMMARY | 2024-10-25 18:56 | XMS_ITS | Clinical Summary ---
Author Organization [facility] Address [address] [place] [address] Phone Care Team Providers Care Plastics Supervisor Name Role Phone Keke Faith DO Primary Care Provider [phone] Allergies No known active allergies Medications ALBUTEROL (PROVENTIL IN)Indications:Aileen mp or mass in breast Take by inhalation . Active fluticasone (FLONASE) 50 mcg/spray Both Nostril SpSnIndications:L ump or mass in breast 03/28/2013 Active pseudoephedrine-g uaiFENesin (MUCINEX D) 60-600 mg Oral [id number]:L ump or mass in breast Take 1 Tab by mouth 2 times daily. Active VENTOLIN HFA 90 mcg/actuation inhalerIndication s:Fibrocystic breast disease (FCBD), unspecified laterality 10/28/2017 Active amitriptyline (ELAVIL) 25 mg tabletIndications :Fibrocystic breast disease (FCBD), unspecified laterality 12/28/2017 Active ADVAIR DISKUS 500-50 mcg/dose disk inhalerIndication s:Fibrocystic breast disease (FCBD), unspecified laterality 11/07/2017 Active triamcinolone acetonide (KENALOG) 0.1 % CreamIndications: Fibrocystic breast disease (FCBD), unspecified laterality 10/25/2017 Active Active Problems Patient Care Coordination No te Formatting of this note migh t be different from the original. Primary Care: Julius Miles MD Referring Provider: Julius Miles MD [address] [place] [address] Other: Dr. Therese Richardson MD Problem Noted Date Diagnosed Date Abnormality of right breast on screening mammogr am 04/17/2020 Dense breast tissue on mammogram 04/17/2020 Diffuse cystic mastopathy 01/23/2010 Lump or mass in breast 07/11/2009 Asthma Family History Medical History Relation Name Comments Breast Cancer Maternal Grandmother Colon Cancer Other paternal great grandmoth Cancer Paternal Grandmother rectal cancer Ovarian Cancer Neg Hx Relation Name Status Comments Maternal Grandmother Other paternal great grandmoth Paternal Grandmother Social History Tobacco Use Types Packs/Day Years Used Date Smoking Tobacco: Never Smokeless Tobacco: Never Alcohol Use Standard Drinks/Week Comments Yes 0 (1 standard drink = 0.6 oz pur e alcohol) rarely Comments No Sex and Gender Information Value Date Recorded Sex Assigned at Not on file 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 Gender Identity Not on file Sexual Orientation Not on file Occupation Industry Job Start Date Job End Date Not on file Not on file Not on file Not on file Last Filed Vital Signs Vital Sign Reading Time Taken Comments Blood Pressure 120/78 04/17/2020 1:10 PM CDT Pulse 64 12/31/2016 11:16 AM CDT Temperature - - Respiratory Rate - - Oxygen Saturation - - Inhaled Oxygen Concentration - - Weight 62.6 kg (138 lb) 04/17/2020 1:10 PM CDT Height 169.5 cm (5' 6.75 ) 04/17/2020 1:10 PM CD T Body Mass Index 21.78 04/17/2020 1:10 PM CDT Plan of Treatment Health Maintenance Due Date Last Done Comments PNEUMOCOCCAL VACCINE 0-64 YE ARS (1 of 2 - PCV) 1981 DTAP/TDAP/TD VACCINES (1 - Tdap) 1994 HEPATITIS B VACCINES (1 of 3 - 19+ 3-dose series) 1994 CERVICAL CANCER SCREENING 2005 COLORECTAL SCREENING 2020 Colorectal Cancer Screening 2020 FIT-DNA Q 3 years 2020 FIT/FOBT Q 1 year 2020 Flex Sig/CT Colonography Q 5 years 2020 BREAST CANCER SCREENING 04/21/2021 04/21/20 20, 04/17/2020, 01/08/2019, Additional history exists INFLUENZA VACCINE (#1) 2024 Procedures Procedure Name Priority Date/Time Associated Diagnosis Comments MAMMO DIAG UNI RIGHT 3D MARIAH W OR WO CAD Routine 04/21/2020 10:57 AM CDT Fibrocystic breast disease (FCBD), unspecified laterality Abnormality of right breast on screening mammogram Dense breast tissue on mammogram from Last 3 Months or Most Recently Relevant to Health Maintenance Results * MAMMO DIAG UNI RIGHT 3D MARIAH W OR WO CAD (04/21/2020 10:57 AM CDT) Anatomical Region Laterality Modality Breast Right Mammography 04/21/2020 10:5 8 AM CDT Impressions 04/21/2020 12:47 PM CDT IMPRESSION: 1. The previously described asymmetry with questionable distortion does not persist on today's diagnostic mammography and is consistent with benign superimposed fibroglandular tissue. 2. No mammographic evidence of malignancy in the right breast. RECOMMENDATION: Return to annual routine screening schedule is recommended. This should include bilateral mammography and automated whole breast screening ultrasound. The patient's next bilateral mammogram will be due in March 2020 and her next breast screening ultrasound will be due in June 2020. OVERALL FINAL ASSESSMENT: ??BI-RADS CATEGORY 2 - Benign findings DICTATION LOCATION: ??[facility] Narrative 04/21/2020 12:47 PM CDT RIGHT BREAST FULL-FIELD DIGITAL DIAGNOSTIC MAMMOGRAM WITH CAD WITH 3D TOMOGRAPHY DATE: 04/21/2020 10:57 AM HISTORY: 45-year-old female with known bilateral breast cysts, called back from screening for further evaluation of an asymmetry with questionable distortion in the outer right breast. COMPARISON: Prior mammograms 06/17/2014 through 04/17/2020. BREAST COMPOSITION: Extremely dense, which limits the sensitivity of mammography. TECHNIQUE: Diagnostic full-field digital mammography was performed on the right breast. Low-dose full-field digital breast tomosynthesis examination was performed with 2D and 3D acquisitions. Examination is read in conjunction with computer aided detection. FINDINGS: Full-field CC, true lateral and a right spot compression view were obtained with 3-D tomosynthesis. The previously described asymmetry with questionable distortion effaces on today's diagnostic mammography. There is no persistent distortion seen on today's imaging which includes 3-D tomosynthesis. No discrete correlate is seen in the right breast on the true lateral view. There is no suspicious mass, concerning microcalcifications or areas of architectural distortion seen in the right breast. Several partially circumscribed partially obscured equal density masses are again identified in the right breast, consistent with waxing and waning cysts. Computer aided detection was utilized in the interpretation of this exam. Procedure Note Latricia Wagner, DO - 04/21/2020 RIGHT BREAST FULL-FIELD DIGITAL DIAGNOSTIC MAMMOGRAM WITH CAD WITH 3D TOMOGRAPHY DATE: 04/21/2020 10:57 AM HISTORY: 45-year-old female with known bilateral breast cysts, called back from screening for further evaluation of an asymmetry with questionable distortion in the outer right breast. COMPARISON: Prior mammograms 06/17/2014 through 04/17/2020. BREAST COMPOSITION: Extremely dense, which limits the sensitivity of mammography. TECHNIQUE: Diagnostic full-field digital mammography was performed on the right breast. Low-dose full-field digital breast tomosynthesis examination was performed with 2D and 3D acquisitions. Examination is read in conjunction with computer aided detection. FINDINGS: Full-field CC, true lateral and a right spot compression view were obtained with 3-D tomosynthesis. The previously described asymmetry with questionable distortion effaces on today's diagnostic mammography. There is no persistent distortion seen on today's imaging which includes 3-D tomosynthesis. No discrete correlate is seen in the right breast on the true lateral view. There is no suspicious mass, concerning microcalcifications or areas of architectural distortion seen in the right breast. Several partially circumscribed partially obscured equal density masses are again identified in the right breast, consistent with waxing and waning cysts. Computer aided detection was utilized in the interpretation of this exam. IMPRESSION: 1. The previously described asymmetry with questionable distortion does not persist on today's diagnostic mammography and is consistent with benign superimposed fibroglandular tissue. 2. No mammographic evidence of malignancy in the right breast. RECOMMENDATION: Return to annual routine screening schedule is recommended. This should include bilateral mammography and automated whole breast screening ultrasound. The patient's next bilateral mammogram will be due in March 2020 and her next breast screening ultrasound will be due in June 2020. OVERALL FINAL ASSESSMENT: BI-RADS CATEGORY 2 - Benign findings DICTATION LOCATION: [facility] Therese Richardson MD MAMMO ORDERABLES Final R esult from Last 3 Months or Most Recently Relevant to Health Maintenance Insurance BCBS BLUE ACCESS/TRUE BLUE PPO Care Teams Plastics Supervisor Relationship Specialty Start Date End Date Keke Faith DO [address] [place] [address] PCP - General Family Practice 10/17/20
--- OUTSIDE RECORDS SUMMARY | 2024-10-25 18:56 | XMS_ITS | Clinical Summary ---
Author Organization [facility] Address [address] [place] [address] Care Team Providers Care Basket Patcher Name Role Phone Mendy Alvarez MD Unavailable [phone] Tommy Johnson MD Primary Care Provider [phone] Source Comments [facility],non-owned Affiliates and Associated Physician Practices is amultiple site organization consisting of ambulatory clinics and hospital sitesin [place], [place], [place] and [place]. This disclosure is being madepursuant to the Care Everywhere program and may not contain all information available regarding this patient. Last updated 18.[facility] Allergies No known active allergies Medications * Be aware that medications may not be up to date on this document. Alwaysverify current medications with the patient. Medication Sig Dispensed Refills Start Date End Date Status ADVAIR DISKUS 250-50 MCG/DOSE inhaler 05/12/2021 Active amitriptyline (ELAVIL) 25 MG tablet 03/11/2021 Act raz albuterol (ACCUNEB) 0.63 MG/3ML nebulizer solution Inhale by mouth 4 times daily as needed for Shortness of Breath or Wheezing Active TRIAMCINOLONE ACETONIDE NA Insert 0.1 % into the vagina as needed Active guaiFENesin ER 12hr (Mucinex) 600 MG tablet Take 1 (one) tablet by mouth every 12 hours Active loratadine (Claritin) 10 MG tablet Take 1 (one) tablet by mouth once daily Active azelastine (Astepro) 205.5 MCG/SPRAY nasal spray [place] 2 (two) sprays into each nostril 2 times daily Active Active Problems Patient Care Coordination No te Formatting of this note migh t be different from the original. Primary Care Provider: DO [place] [address] Referring Provider: Keke Faith DO [address] [place] [address] No known active problems Family History Medical History Relation Name Comments Cancer - Breast Maternal Grandmother GrJavier Reyes late in life; did not from this. Cancer - Colon Other Gr. Karen (mota rnal great-grandmother) late in life Cancer - Rectal Paternal Grandmother Gr. Ulloa late in life Relation Name Status Comments Maternal Grandmother GrJavier Reyes Other Gr. 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 Appointment [facility] Imaging Services - Ultrasound [address] [place] [address] [address] [place] [address] 05/30/2025 11:00 AM CDT Appointment [facility] Breast Care [address] [place] [address] [address] [place] [address] 05/30/2025 11:30 AM CDT Office Visit [facility] Medical Group - Surgery [address], [address] [place] [address] Mendy Alvarez MD [address] [place] [address] Health Maintenance Due Date Last Done Comments COLOGUARD (AGES 45-75) - COLON CA SCREENING 1975 COLON MONITORING 1975 COLONOSCOPY - COLON CA SCREENING 1975 CT COLONOGRAPHY - COLON CA SCREENING 1975 Colorectal Cancer Screening 1975 FIT - COLON CA SCREENING 1975 FLEX SIG - COLON CA SCREENING 1975 LIPID TESTING 1975 PAP SMEAR 1975 HIV SCREENING 1990 HEPATITIS C SCREENING 03/18/1993 DTAP/TDAP/TD VACCINES (1 - Tdap) 1994 HEPATITIS B VACCINE (1 of 3 - 19+ 3-dose series) 1994 COVID-19 VACCINE (1 - season) 2024 INFLUENZA VACCINE (#1) 2024 DEPRESSION SCREENING 09/26/2024 ZOSTER VACCINE (1 of 2) 2025 MAMMOGRAM 05/29/2026 05/29/2024, 04/27, 05/21/2022, Additional history exists HIB VACCINE Aged Out No longer eligi ble based on patient's age to complete this topic HPV VACCINE Aged Out No longer eligi ble based on patient's age to complete this topic MENINGOCOCCAL (Group B) VACCINE Aged Out No longer eligible based on patient's age to complete this topic MENINGOCOCCAL VACCINE Aged Out No luis samuel eligible based on patient's age to complete this topic PNEUMOCOCCAL VACCINE Aged Out No long er eligible based on patient's age to complete this topic Procedures Procedure Name Priority Date/Time Associated Diagnosis Comments MAMMO BILAT SCREENING W PRAVIN Routine 05/29/2024 11:00 AM CDT Encounter for screening mammogram for malignant neoplasm of breast from Last 3 Months or Most Recently Relevant to Health Maintenance Results * Mammo Bilat Screening W Pravin (05/29/2024 11:00 AM CDT) Anatomical Region Laterality Modality Breast Bilateral Mammography 05/29/2024 1:30 PM CDT Impressions 05/29/2024 1:34 PM CDT : No mammographic evidence of malignancy in either breast. ASSESSMENT: BIRADS Category 2: Benign finding(s). RECOMMENDATION: Supplemental screening with breast MRI or whole breast ultrasound is recommended Bilateral screening mammogram in one year. Thank you for allowing us to participate in the care of your patient. [facility] Breast [facility] utilizes [employer] as a reminder system to notify patients [...] tomosynthesis images. Mendy Alvarez MD MAMMO ORDERABLES from Last 3 Months or Most Recently Relevant to Health Maintenance Care Teams Basket Patcher Relationship Specialty Start Date End Date Tommy Johnson MD [facility] [place] [address] PCP - General Family Medicine 05/24/23 Mendy Alvarez MD [address] [place] [address] Surgical Oncologist General Surgery 11/07/20
--- OUTSIDE RECORDS SUMMARY | 2024-10-25 18:56 | XMS_ITS | Referral Summary ---
Author Organization [facility] Address [address] [facility] [place] [address] Care Team Providers Care Rivet Flunky Name Role Phone Mendy Alvarez MD Unavailable [phone] Tommy Johnson MD Primary Care Provider [phone] Source Comments [facility],non-owned Affiliates and Associated Physician Practices is amultiple site organization consisting of ambulatory clinics and hospital sitesin [place], [place], [place] and [place]. This disclosure is being madepursuant to the Care Everywhere program and may not contain all information available regarding this patient. Last updated 18.[facility] Allergies No known active allergies Medications * [...] Active azelastine (Astepro) 205.5 MCG/SPRAY nasal spray [place] 2 (two) sprays into each nostril 2 times daily Active Active Problems Patient Care Coordination No te Formatting of this note migh t be different from the original. 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 [facility] Imaging Services - Ultrasound [address] [place] [address] [address] [place] [address] 05/30/2025 11:00 AM CDT Appointment [facility] Breast Care [address] [place] [address] [address] [place] [address] 05/30/2025 11:30 AM CDT Office Visit [facility] Health Medical Group - Surgery [address] [place] [address], [address] [place] [address] Mendy Alvarez MD [address] [place], [place] [address] [place] [address] Procedures Procedure Name Priority Date/Time Associated Diagnosis [...] participate in the care of your patient. [facility] Breast Care utilizes [employer] as a reminder system to notify patients [...] Recently Relevant to Health Maintenance Care Teams Rivet Flunky Relationship Specialty Start Date End Date Tommy Johnson MD [facility] [place] [address] PCP - General Family Medicine 05/24/23 Mendy Alvarez MD [address] [place] [address] Surgical Oncologist General Surgery 11/07/20
[2024-10-25 19:23] VITALS: BP 109/62; PULSE 96; RESP 16; TEMP 36.8; O2SAT 92
--- OUTSIDE RECORDS SUMMARY | 2024-10-25 19:50 | XMS_ITS | Continuity of Care Document ---
Author Organization [facility] Address [address] [place] [address] [place] [address] Phone Care Team Providers Care Cake Puller Name Role Phone Scott Bangura Unavailable Unavailable Advance Directives Directive Yes / No Effective Date File Name No Information Encounters Encounter Description Practice Location Reason(s) For Visit Diagnoses Date Provider Providers Copied on Encounter [facility], [address] [place] [address] [address], [place], [place], [id number], [place] tel:[phone] [facility] No Information Willem Chavez. [address], [place], [facility], . tel:[phone] Referring Provider: Scott Norwood, [address], [place], [facility]. tel:[phone] Family History Family Member Type Diagnosis Age At Onset No Information Payers Payer name Insurance type Covered green party ID Authoriza tiluis miguel(s) [employer] Commercial CI [id number] Social History Type Description Quantity Date Captured [...]
--- OUTSIDE RECORDS SUMMARY | 2024-10-25 19:50 | XMS_ITS | Clinical Summary ---
Author Organization [facility] Address [address] [facility] [place] [address] Care Team Providers Care Health Claims Examiner Name Role Phone Mendy Alvarez MD Unavailable [phone] Tommy Johnson MD Primary Care Provider [phone] Source Comments [facility],non-owned Affiliates and Associated Physician Practices is amultiple site organization consisting of ambulatory clinics and hospital sitesin [place], [place] and [place]. This disclosure is being madepursuant to the Care Everywhere program and may not contain all information available regarding this patient. Last updated 18.[facility] Allergies No known active allergies Medications * [...] Active azelastine (Astepro) 205.5 MCG/SPRAY nasal spray [employer] 2 (two) sprays into each nostril 2 times daily Active Active Problems Patient Care Coordination No te Formatting of this note migh t be different from the original. 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 [facility] Breast [facility] utilizes [employer] as a reminder system to notify patients [...] Recently Relevant to Health Maintenance Care Teams Health Claims Examiner Relationship Specialty Start Date End Date Tommy Johnson MD [facility] [place] [address] PCP - General Family Medicine 05/24/23 Mendy Alvarez MD [address] [place] [phone] Surgical Oncologist General Surgery 11/07/20
--- OUTSIDE RECORDS SUMMARY | 2024-10-25 19:50 | XMS_ITS | Referral Summary ---
Author Organization [facility] Address [address] [facility] [place] [address] Care Team Providers Care Criminology Professor Name Role Phone Mendy Alvarez MD Unavailable [phone] Tommy Johnson MD Primary Care Provider [phone] Source Comments [facility],non-owned Affiliates and Associated Physician Practices is amultiple site organization consisting of ambulatory clinics and hospital sitesin [place], [place], [place] and [place]. This disclosure is being madepursuant to the Care Everywhere program and may not contain all information available regarding this patient. Last updated 18.[facility] Allergies No known active allergies Medications * [...] Active azelastine (Astepro) 205.5 MCG/SPRAY nasal spray [place] 2 (two) sprays into each nostril 2 times daily Active Active Problems Patient Care Coordination No te Formatting of this note migh t be different from the original. 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 [facility] Imaging Services - Ultrasound [address] [place] [address] [address] [place] [address] 05/30/2025 11:00 AM CDT Appointment [facility] Breast Care [address] [place] [address] [address] [place] [address] 05/30/2025 11:30 AM CDT Office Visit [facility] Health Medical Group - Surgery [address] [place] [address], [address] [place] [address] Mendy Alvarez MD [address] [place], [place] [address] [place] [address] Procedures Procedure Name Priority Date/Time [...] participate in the care of your patient. [facility] Breast Care utilizes Med [employer]Pad as a reminder system to notify patients [...] Recently Relevant to Health Maintenance Care Teams Criminology Professor Relationship Specialty Start Date End Date Tommy Johnson MD [facility] [place] [phone] PCP - General Family Medicine 05/24/23 Mendy Alvarez MD [address] [place] [phone] Surgical Oncologist General Surgery 11/07/20
--- OUTSIDE RECORDS SUMMARY | 2024-10-25 19:50 | XMS_ITS | Clinical Summary ---
[facility] Address [address] [place] [address] Phone Care Team Providers Care Hawk [employer] Name Role Phone Keke Faith DO Primary Care Provider [phone] Allergies No known active allergies Medications ALBUTEROL (PROVENTIL IN)Indications:Aileen mp or mass in breast Take by inhalation . Active fluticasone (FLONASE) 50 mcg/spray Both Nostril SpSnIndications:L ump or mass in breast 03/28/2013 Active pseudoephedrine-g uaiFENesin (MUCINEX D) 60-600 mg Oral [id number]:L ump or mass in breast Take 1 [...] Miles MD [address] [place] [address] Other: Dr. 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
--- OUTSIDE RECORDS SUMMARY | 2024-10-25 19:50 | XMS_ITS | Patient Health Summary ---
Author Organization [facility] Address [address] [place] [address] Care Team Providers Care Ward Maid Name Role Phone Mendy Alvarez MD Unavailable [phone] Tommy Johnson MD Primary Care Provider [phone] [facility],non-owned Affiliates and Associated Physician Practices is amultiple site organization consisting of ambulatory clinics and hospital sitesin [place], [place], [place] and [place]. This disclosure is being madepursuant to the Care Everywhere program and may not contain all information available regarding this patient. Last updated 18.[facility] Allergies No known active allergies Medications * [...] * azelastine (Astepro) 205.5 MCG/SPRAY nasal spray [place] 2 (two) sprays into each nostril 2 [...] patient. [facility] Breast [facility] utilizes Expert360 as a reminder system to notify patients [...] axilla and retroareaolar region) (10/31/2023 1:45 PM ASSEMBLER FILTERS) Only the most recent of3 resultswithin the time period is included. Anatomical Region Laterality Modality Breast Bilateral Ultrasound 10/31/2023 1:46 PM ASSEMBLER FILTERS Narrative 10/31/2023 1:49 PM ASSEMBLER FILTERS EXAMINATION: US BREAST BILATERAL COMPLETE DATE: ??10/31/2023 [...] is difficult to include in a single [id number]. No morphologically abnormal axillary lymph nodes. LEFT [...] PM Mendy Alvarez MD ORDERABLES Care Teams Ward Maid Relationship Specialty Start Date End Date Tommy Johnson MD [facility] [place] [address] PCP - General Family Medicine 05/24/23 Mendy Alvarez MD [address] [place] [address] Surgical Oncologist General Surgery 11/07/20
--- NOTE | 2024-10-25 19:52 | PC.NURSE ---
pt comes to intake desk to this RN stating, we would like to go to [facility] to be assessed since there are so many people here . pt ambulates with steady gait and in no resp. distress.
== END 2024-10-25 19:52 | disposition left against medical advice (07) ==
PROVIDERS: PCP Family Medicine
DX: R06.00 Dyspnea, unspecified (principal)
CPT/HCPCS: 99199

== ENCOUNTER 2024-10-25 20:22 | Emergency (ER) | payer BC, SELFPAY ==
--- OUTSIDE RECORDS SUMMARY | 2024-10-25 20:24 | XMS_ITS | Patient Health Summary ---
Author Organization [facility] Address [address] [facility] [place] [address] Care Team Providers Care Health Specialist Name Role Phone Mendy Alvarez MD Unavailable [phone] Tommy Johnson MD Primary Care Provider [phone] Note from [facility],non-owned Affiliates and Associated Physician Practices is amultiple site organization consisting of ambulatory clinics and hospital sitesin [place], [place], [place] and [place]. This disclosure is being madepursuant to the Care Everywhere program and may not contain all information available regarding this patient. Last updated 18.[facility] Allergies No known active allergies Medications [...] * azelastine (Astepro) 205.5 MCG/SPRAY nasal spray [place] 2 (two) sprays into each nostril 2 [...] participate in the care of your patient. [facility] Breast [facility] utilizes [employer] as a reminder system to notify patients [...] axilla and retroareaolar region) (10/31/2023 1:45 PM WHARFMASTER) Only the most recent of3 resultswithin the time period is included. Anatomical Region Laterality Modality Breast Bilateral Ultrasound 10/31/2023 1:46 PM WHARFMASTER Narrative 10/31/2023 1:49 PM WHARFMASTER EXAMINATION: US BREAST BILATERAL COMPLETE DATE: ??10/31/2023 [...] is difficult to include in a single [id number]. No morphologically abnormal axillary lymph nodes. LEFT [...] PM Mendy Alvarez MD ORDERABLES Care Teams Health Specialist Relationship Specialty Start Date End Date Tommy Johnson MD [facility] [place] [address] PCP - General Family Medicine 05/24/23 Mendy Alvarez MD [address] [place] [address] Surgical Oncologist General Surgery 11/07/20
--- OUTSIDE RECORDS SUMMARY | 2024-10-25 20:24 | XMS_ITS | Clinical Summary ---
Author Organization [facility] Address [address] [place] [address] Care Team Providers Care Cctv Technician Name Role Phone Mendy Alvarez MD Unavailable [phone] Tommy Johnson MD Primary Care Provider [phone] Source Comments [facility] [employer],non-owned Affiliates and Associated Physician Practices is amultiple site organization consisting of ambulatory clinics and hospital sitesin [place], [place], [place] and [place]. This disclosure is being madepursuant to the Care Everywhere program and may not contain all information available regarding this patient. Last updated 18.[facility] Allergies No known active allergies Medications * [...] Active azelastine (Astepro) 205.5 MCG/SPRAY nasal spray [place] 2 (two) sprays into each nostril 2 times daily Active Active Problems Patient Care Coordination No te Formatting of this note migh t be different from the original. 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 [facility] Breast [facility] utilizes Trippy as a reminder system to notify patients [...] Recently Relevant to Health Maintenance Care Teams Cctv Technician Relationship Specialty Start Date End Date Tommy Johnson MD [facility] [place] [address] PCP - General Family Medicine 05/24/23 Mendy Alvarez MD [address] [place] [phone] Surgical Oncologist General Surgery 11/07/20
--- OUTSIDE RECORDS SUMMARY | 2024-10-25 20:24 | XMS_ITS | Clinical Summary ---
[facility] Address [address] [place] [address] Phone Care Team Providers Care Airframe And Powerplant Mechanic Name Role Phone Keke Faith DO Primary Care Provider [phone] Allergies No known active allergies Medications ALBUTEROL (PROVENTIL IN)Indications:Aileen mp or mass in breast Take by inhalation . Active fluticasone (FLONASE) 50 mcg/spray Both Nostril SpSnIndications:L ump or mass in breast 03/28/2013 Active pseudoephedrine-g uaiFENesin (MUCINEX D) 60-600 mg Oral [id number]:L ump or mass in breast Take 1 [...] Miles MD [address] [place] [address] Other: Dr. 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
--- OUTSIDE RECORDS SUMMARY | 2024-10-25 20:24 | XMS_ITS | Continuity of Care Document ---
Author Organization [facility] Address [address] [place] [address] [place] [address] Phone Care Team Providers Care Kitchen Help Handyman Name Role Phone Scott Bangura Unavailable Unavailable Advance Directives Directive Yes / No Effective Date File Name No Information Encounters Encounter Description Practice Location Reason(s) For Visit Diagnoses Date Provider Providers Copied on Encounter [facility], [address] [place] [address] [address], [place], [place], [id number], [place] tel:[phone] [facility] No Information Willem Chavez. [address] [place], [place], [facility], . tel:[phone] Referring Provider: Scott Norwood, [address] [place], [place], [facility]. tel:[phone] Family History Family Member Type Diagnosis Age At Onset No Information Payers Payer name Insurance type Covered republican ID Authoriza tiluis miguel(s) [facility] Commercial CI [id number] Social History Type Description Quantity Date Captured [...]
--- OUTSIDE RECORDS SUMMARY | 2024-10-25 20:24 | XMS_ITS | Referral Summary ---
Author Organization [facility] Address [address] [facility] [place] [address] Care Team Providers Care Biostatistics Teacher Name Role Phone Mendy Alvarez MD Unavailable [phone] Tommy Johnson MD Primary Care Provider [phone] Source Comments [facility] [employer],non-owned Affiliates and Associated Physician Practices is amultiple site organization consisting of ambulatory clinics and hospital sitesin [place], [place], [place] and [place]. This disclosure is being madepursuant to the Care Everywhere program and may not contain all information available regarding this patient. Last updated 18.[facility] [employer] Allergies No known active allergies Medications * [...] Active azelastine (Astepro) 205.5 MCG/SPRAY nasal spray [place] 2 (two) sprays into each nostril 2 times daily Active Active Problems Patient Care Coordination No te Formatting of this note migh t be different from the original. Primary Care Provider: DO [place] [address] Referring Provider: DO Mar[place] [address] No known active problems Social History Tobacco [...] st Contact Info) Description 11/26/2024 1:00 PM SPECIALTY DEVELOPMENT CONSULTANT Appointment [facility] Imaging Services - Ultrasound [address] [place] [address] [address] [place] [address] 05/30/2025 11:00 AM CDT Appointment [facility] Breast Care [address] [place] [address] [address] [place] [address] 05/30/2025 11:30 AM CDT Office Visit [facility] Health Medical Group - Surgery [address] [place] [address], [address] [place] [address] Mendy Alvarez MD [address] [place], [place] [address] [place] [address] Procedures Procedure Name Priority Date/Time [...] participate in the care of your patient. [facility] Breast Care utilizes [employer] as a reminder system to notify patients [...] Recently Relevant to Health Maintenance Care Teams Biostatistics Teacher Relationship Specialty Start Date End Date Tommy Johnson MD [facility] [place] [address] PCP - General Family Medicine 05/24/23 Mendy Alvarez MD [address] [place] [address] Surgical Oncologist General Surgery 11/07/20
[2024-10-25 20:25] VITALS: BP 121/75; PULSE 84; RESP 20; TEMP 36.9; O2SAT 97
[2024-10-25] MEDS: IPRATROPIUM 0.5 MG/ALBUTEROL SULFATE 2.5 MG AMPUL.NEB 3 ML INHALATION (20:49)
--- NOTE | 2024-10-25 20:49 | ED.SOB ---
HPI - SOB/Dyspnea General Chief Complaint: Shortness of Breath/Dyspnea Stated Complaint: flu and pneumonia Time Seen by Provider: 10/25/24 20:37 Source: patient and family Mode of arrival: ambulatory Limitations: no limitations History of Present Illness HPI Narrative: this is 49-year-old female with history of asthma was seen at [facility] earlier today had a chest x-ray consistent with pneumonia and started on antibiotics. Patient presents to the ER because she feels that she has some wheezing and feels dehydrated. Otherwise there is no nausea vomiting no abdominal pain no chest pain or chest tightness no fever chills. MD elicited complaint: shortness of breath and cough Pertinent past history: asthma Onset (ago): day(s) Timing: constant Severity: mild Related Data Home Medications ?Medication ?Instructions ?Recorded ?Confirmed ?Last Taken ?Type triamcinolone acetonide 0.1 % 1 applic topical BID PRN Itching 10/29/19 09/18/24 11/20/19 History topical cream guaifenesin 600 mg tablet, 600 mg PO Q12H PRN ASTHMA 05/26/23 10/25/24 Unknown History extended release 12 hr (Mucinex) loratadine 10 mg tablet (Claritin) 10 mg PO DAILY PRN ASTHMA 05/26/23 09/18/24 Unknown History azelastine 205.5 mcg (0.15 %) 1 spray intranasal QHS 12/21/23 09/18/24 Unknown History nasal spray (Astepro Allergy) Allergies Allergy/AdvReac Type Severity Reaction Status Date / Time No Known Allergies Allergy Verified 10/25/24 10:47 Review of Systems Review of Systems: All systems reviewed & are unremarkable except as noted in HPI and below PMFSH Past Medical History Medical History Menorrhagia with regular cycle Iron deficiency anemia due to chronic blood loss Allergic rhinitis, cause unspecified Fracture of fifth metatarsal bone of right foot Fibroid uterus Asthma Surgical History Surgical History [place] teeth removed [address] Casie Simental H/O: hysterectomy [address] Scott Duckworth H/O dilation and curettage [address] Scott Duckworth H/O prior ablation treatment [address] Scott Duckworth Family History Family History Mother Patient's mother is , Onset Age: 63 Family history of multiple sclerosis Family history of muscular dystrophy Family history of hearing loss Father Patient's father is in good health Grandparent Carcinoma of colon Family history of malignant neoplasm of breast in first degree relative Other Kidney disorder Other Asthma Social History Social History Smoking status: Never smoker Alcohol intake: current Alcohol use details: 1-2 drinks at most per month Substance use: never Substance use type: does not use Lack of Transportation: No Lack of Food: Never True Current Housing: I Have Housing Concerned About Future Housing: No Difficulty Paying Gas/Electric Bills: No Difficulty Paying for Meds: No Currently Unemployed: No Education: Bachelor's Degree Difficulty w/ Childcare or Family Care: No Living arrangements: with family Gender identity (if verbalized by the patient): Female Spiritual care concerns: No Exam Const: General: healthy appearing Nutritional Appearance: well nourished Orientation/consciousness: patient oriented x3 Limitations: no limitations HENMT: Throat: posterior oropharynx normal Eyes: Conjunctivae: conjunctivae normal Neck: Neck: normal visual inspection Chest: Chest palpation & inspection: normal inspection of the chest Resp: Effort & Inspection: normal respiratory effort Auscultation: wheezes Cardio: Rate: regular rate Rhythm: regular rhythm GI: GI Palp: Yes Soft to palpation Auscultation: normal bowel sounds Skin: General skin exam: normal color Rashes: no rashes Wounds: no wounds Neuro: General: patient oriented x3 Course Course Emergency Course: Patient received IV fluids, and a breathing treatment calming her vitals are stable with O2 sats at 97% on room air. Advised patient to continue the antibiotics that we should his prescribed by the [facility]. COVID influenza RSV performed and reviewed. Vital Signs Vital signs: Vital Signs Temperature 36.9 C 10/25/24 20:25 Pulse Rate 84 10/25/24 20:25 Respiratory Rate 20 10/25/24 20:25 Blood Pressure 121/75 10/25/24 20:25 Pulse Oximetry 97 10/25/24 20:25 Oxygen Delivery Room Air 10/25/24 20:25 Temperature 36.9 C 01/30/25 20:25 Pulse Rate 84 10/25/24 20:25 Respiratory Rate 20 10/25/24 20:25 Blood Pressure 121/75 10/25/24 20:25 Pulse Oximetry 97 10/25/24 20:25 Oxygen Delivery Room Air 10/25/24 20:25 Critical Care Time Critical Care Time Critical Care Time: No Discharge Plan Discharge Clinical Impression: Influenza A Asthma Qualifiers: Asthma severity: mild Asthma persistence: unspecified Asthma complication type: uncomplicated Qualified Code(s): J45.909 - Unspecified asthma, uncomplicated Pneumonia Qualifiers: Pneumonia type: due to unspecified organism Laterality: unspecified laterality Lung location: unspecified part of lung Qualified Code(s): J18.9 - Pneumonia, unspecified organism Patient Disposition: Home, Self-Care Condition: Stable Instructions: Antibiotic Form, Influenza (ED) Additional Instructions: advised to take Tylenol or Motrin as needed drink plenty of fluids take medication as prescribed follow with primary if symptoms persist or worsen. Patient Language: Gabonese Prescriptions: New oseltamivir [Tamiflu] 75 mg capsule 75 mg PO Q12H 5 Days Qty: 10 0RF No Action (DME) Aerochamber MV Spacer See Rx Instructions .Route Qty: 1 0RF Rx Instructions: As directed azithromycin 250 mg tablet See Rx Instructions .ROUTE .COMPLEX Qty: 6 0RF Rx Instructions: take 500 mg today (day 1), then 250 mg for 4 days (days 2-5) amoxicillin-pot clavulanate 875-125 mg tablet 1 tablet PO Q12H Qty: 14 0RF azelastine [Astepro Allergy] 205.5 mcg (0.15 %) spray,non-aerosol 1 spray intranasal QHS Rx Instructions: administer into each nostril amitriptyline 25 mg tablet 25 mg PO QHS Qty: 90 3RF albuterol sulfate [Ventolin HFA] 90 mcg/actuation HFA aerosol inhaler 2 puff INHALATION Q4-6H PRN (Reason: Shortness Of Breath Or Wheezing) Qty: 8.5 5RF triamcinolone acetonide 0.1 % cream 1 applic TOPICAL BID PRN (Reason: Itching) loratadine [Claritin] 10 mg Tablet 10 mg PO DAILY PRN (Reason: ASTHMA) guaifenesin [Mucinex] 600 mg Tablet Extended Release 12hr 600 mg PO Q12H PRN (Reason: ASTHMA) mupirocin 2 % ointment 1 applic topical BID Qty: 22 1RF fluticasone propion-salmeterol 250-50 mcg/dose blister with device See Rx Instructions .ROUTE .COMPLEX Qty: 180 0RF Dose Instruction: INHALE ONE PUFF TWICE A DAY Rx Instructions: INHALE ONE PUFF TWICE A DAY Follow-up/Referrals: Tommy Johnson MD [Primary Care Provider] -
[2024-10-25] MEDS: SODIUM CHLORIDE 0.9% IV 1,000 ML 999 ML IV CONT (20:55)
[2024-10-25 20:58] VITALS: PULSE 99; RESP 20; O2SAT 98
--- OUTSIDE RECORDS SUMMARY | 2024-10-25 21:02 | XMS_ITS | Continuity of Care Document ---
Author Organization [facility] Address [address] [place] [address] [place] [address] Phone Care Team Providers Care Parts Analyst Name Role Phone Scott Bangura Unavailable Unavailable Advance Directives Directive Yes / No Effective Date File Name No Information Encounters Encounter Description Practice Location Reason(s) For Visit Diagnoses Date Provider Providers Copied on Encounter [facility], [address] [place] [address] [address], [place], [place], [id number], [place] tel:[phone] [facility] No Information Willem Chavez. [address] [place], [place], [facility], . tel:[phone] Referring Provider: Scott Norwood, [address] [place], [place], [facility]. tel:[phone] Family History Family Member Type Diagnosis Age At Onset No Information Payers Payer name Insurance type Covered green party ID Authoriza tiluis miguel(s) [facility] Commercial CI [id number] Social History Type Description Quantity Date Captured [...]
--- OUTSIDE RECORDS SUMMARY | 2024-10-25 21:02 | XMS_ITS | Clinical Summary ---
Author Organization [facility] Address [address] [facility] [place] [address] Care Team Providers Care Hose Sprayer Name Role Phone Mendy Alvarez MD Unavailable [phone] Tommy Johnson MD Primary Care Provider [phone] Source Comments [facility] [employer],non-owned Affiliates and Associated Physician Practices is amultiple site organization consisting of ambulatory clinics and hospital sitesin [place], [place] and [place]. This disclosure is being madepursuant to the Care Everywhere program and may not contain all information available regarding this patient. Last updated 18.[facility] [employer] Allergies No known active allergies Medications * [...] Active azelastine (Astepro) 205.5 MCG/SPRAY nasal spray [place] 2 (two) sprays into each nostril 2 times daily Active Active Problems Patient Care Coordination No te Formatting of this note migh t be different from the original. 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 [facility] Breast [facility] utilizes [employer] as a reminder system to notify patients [...] Recently Relevant to Health Maintenance Care Teams Hose Sprayer Relationship Specialty Start Date End Date Tommy Johnson MD [facility]7 [place] [address] PCP - General Family Medicine 05/24/23 Mendy Alvarez MD [address] [place] [address] Surgical Oncologist General Surgery 11/07/20
--- OUTSIDE RECORDS SUMMARY | 2024-10-25 21:02 | XMS_ITS | Referral Summary ---
Author Organization [facility] Address [address] [facility] [place] [place] [address] Care Team Providers Care Aluminum Siding Applicator Name Role Phone Mendy Alvarez MD Unavailable [phone] Tommy Johnson MD Primary Care Provider [phone] Source Comments [facility] [employer],non-owned Affiliates and Associated Physician Practices is amultiple site organization consisting of ambulatory clinics and hospital sitesin [place], [place], [place] and [place]. This disclosure is being madepursuant to the Care Everywhere program and may not contain all information available regarding this patient. Last updated 18.[facility] [employer] Allergies No known active allergies Medications * [...] Active azelastine (Astepro) 205.5 MCG/SPRAY nasal spray [place] 2 (two) sprays into each nostril 2 times daily Active Active Problems Patient Care Coordination No te Formatting of this note migh t be different from the original. 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 Appointment [facility] Imaging Services - Ultrasound [address] [place] [address] [address] [place] [address] 05/30/2025 11:00 AM CDT Appointment [facility] Breast Care [address] [place] [address] [address] [place] [address] 05/30/2025 11:30 AM CDT Office Visit [facility] Health Medical Group - Surgery [address] [place] [address], [address] [place] [address] Mendy Alvarez MD [address] [place], [place] [address] [place] [address] Procedures Procedure Name Priority Date/Time [...] in the care of your patient. [facility] Breast Care utilizes [employer] as a reminder system to notify patients [...] Recently Relevant to Health Maintenance Care Teams Aluminum Siding Applicator Relationship Specialty Start Date End Date Tommy Johnson MD [facility] [place] [address] PCP - General Family Medicine 05/24/23 Mendy Alvarez MD [address] [place] [address] Surgical Oncologist General Surgery 11/07/20
--- OUTSIDE RECORDS SUMMARY | 2024-10-25 21:02 | XMS_ITS | Clinical Summary ---
[facility] Address [address] [place] [address] Phone Care Team Providers Care Field Auditor Name Role Phone Keke Faith DO Primary Care Provider [phone]- [phone] Allergies No known active allergies Medications ALBUTEROL (PROVENTIL IN)Indications:Aileen mp or mass in breast Take by inhalation . Active fluticasone (FLONASE) 50 mcg/spray Both Nostril SpSnIndications:L ump or mass in breast 03/28/2013 Active pseudoephedrine-g uaiFENesin (MUCINEX D) 60-600 mg Oral [id number]:L ump or mass in breast Take 1 [...] Miles MD [address] [place] [address] Other: Dr. 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
--- OUTSIDE RECORDS SUMMARY | 2024-10-25 21:03 | XMS_ITS | Patient Health Summary ---
Author Organization [facility] Address [address] [place] [address] Care Team Providers Care Outdoor Illuminating Engineer Name Role Phone Mendy Alvarez MD Unavailable [phone] Tommy Johnson MD Primary Care Provider [phone] Note from [facility],non-owned Affiliates and Associated Physician Practices is amultiple site organization consisting of ambulatory clinics and hospital sitesin [place], [place], [place] and [place]. This disclosure is being madepursuant to the Care Everywhere program and may not contain all information available regarding this patient. Last updated 18.[facility] Allergies No known active allergies Medications [...] * azelastine (Astepro) 205.5 MCG/SPRAY nasal spray [place] 2 (two) sprays into each nostril 2 [...] participate in the care of your patient. [facility] Breast [facility] utilizes Fast[employer] as a reminder system to notify patients [...] axilla and retroareaolar region) (10/31/2023 1:45 PM PLANER STONE) Only the most recent of3 resultswithin the time period is included. Anatomical Region Laterality Modality Breast Bilateral Ultrasound 10/31/2023 1:46 PM PLANER STONE Narrative 10/31/2023 1:49 PM PLANER STONE EXAMINATION: US BREAST BILATERAL COMPLETE DATE: ??10/31/2023 [...] is difficult to include in a single [id number]. No morphologically abnormal axillary lymph nodes. LEFT [...] PM Mendy Alvarez MD ORDERABLES Care Teams Outdoor Illuminating Engineer Relationship Specialty Start Date End Date Tommy Johnson MD [facility] [place] [address] PCP - General Family Medicine 05/24/23 Mendy Alvarez MD [address] [place] [address] [place] [id number] Surgical Oncologist General Surgery 11/07/20
[2024-10-25 21:42] LABS: SARS-CoV-2 RNA PCR Negative (Negative)
[2024-10-25 21:43] LABS: Influenza A QL RT-PCR Positive (Negative); Influenza B QL RT-PCR Negative (Negative); RSV RNA, RT-PCR Negative (Negative)
[2024-10-25] MEDS: OSELTAMIVIR PHOSPHATE 75 MG CAPSULE PO (21:58)
[2024-10-25 22:04] VITALS: BP 111/52; PULSE 85; RESP 20; TEMP 37; O2SAT 97
== END 2024-10-25 22:04 | disposition home or self-care (01) ==
LOC: CHSED 21:01
PROVIDERS: Emergency Provider Emergency Medicine; PCP Family Medicine
DX: J10.1 Influenza due to other identified influenza virus with other respiratory manifestations (principal); J45.909 Unspecified asthma, uncomplicated; Z20.822 Contact with and (suspected) exposure to COVID-19
CPT/HCPCS: 87637; 94640; 96360; 99283; A9270; J7030